=== PATIENT | female | born 1960 | race Two or more races ===

== ENCOUNTER → 2016-12-25 | Outpatient (CLI) | payer BC ==
--- NOTE | 2016-12-25 16:11 | RAD ---
PROCEDURE MRI of left knee without contrast dated 12/25/2016. HISTORY Worsening left knee pain. History of recent dislocation. TECHNIQUE Routine multiplanar multisequence MR imaging performed. COMPARISON None. FINDINGS Patchy bone marrow edema within the posterior medial and posterior lateral tibial plateau. There is also mild edema within the marrow of the distal femur at the lateral terminal sulcus and weightbearing surface low medial femoral condyle. Mild edema is also noted within the medial patella. Possible small nondisplaced fracture at the posterior lateral tibial plateau. Moderate-sized joint effusion. Small to moderate-sized popliteal cyst. There is patchy edema throughout the subcutaneous tissues of the anterior and posterior knee. There is also mild edema within the gastrocnemius musculature. No apparent loose body. The anterior cruciate ligament is ill-defined at its femoral attachment and may be completely performed. The PCL is intact. Abnormal signal along the superficial and deep margins of the medial collateral ligament complex. There are thin fibers that appear to remain attached. No retracted tear. Mild increased signal within the substance of the fibular collateral ligament at its femoral attachment. Biceps femoris and conjoined tendon are intact. Popliteus tendon and iliotibial band intact. The arcuate complex is ill-defined and there is edema along the posterior lateral corner are the tip of the fibula. Vertical long-axis tear posterior horn and body lateral meniscus. The there is meniscal tissue flipped over the anterior horn and into the intercondylar notch. Medial meniscus normal in morphology and signal. Mild tricompartmental hypertrophic change. Thinning and surface irregularity of the articular cartilage throughout. Full-thickness cartilage fissuring at the medial aspect of the lateral aspect of the medial femoral condyle. There is also full-thickness cartilage loss at the medial patellar facet, patellar apex and trochlear groove. IMPRESSION - Bucket-handle tear of lateral meniscus. - Suspected full-thickness tear of the anterior cruciate ligament at its femoral attachment. Recommend physical exam correlation. - Intermediate to low grade strain of the medial collateral ligament complex proximally. - Low-grade strain of the fibular collateral ligament. - Edema and ill definition of the arcuate complex, possibly related to posterior lateral corner injury. - Mild tricompartmental degenerative arthrosis and chondromalacia. There is a full-thickness cartilage loss at the medial and anterior compartments. - Pivot shift bone contusion pattern as described above. There is a suspected small nondisplaced fracture of the posterior lateral tibial plateau. - Moderate size joint effusion and small popliteal cyst. Electronically signed by: Marek Gallardo (Dec 25, 2016 16:09:42)
== END | disposition home or self-care (01) ==
LOC: MRI 14:14
PROVIDERS: ATTEND Family Medicine
DX: S83.512A Sprain of anterior cruciate ligament of left knee, initial encounter (principal); S83.252A Bucket-handle tear of lateral meniscus, current injury, left knee, initial encounter; M17.12 Unilateral primary osteoarthritis, left knee; M94.262 Chondromalacia, left knee; M25.462 Effusion, left knee; M71.22 Synovial cyst of popliteal space [Baker], left knee; X58.XXXA Exposure to other specified factors, initial encounter; Y93.89 Activity, other specified; Y92.89 Other specified places as the place of occurrence of the external cause; Y99.8 Other external cause status
CPT/HCPCS: 73721

== ENCOUNTER 2017-01-29 05:45 | Observation (INO) | payer BC ==
[~2017-01-29] VITALS: Ht 162.6 cm; Wt 79.4 kg
[2017-01-29] VITALS (8 sets, daily range): BP systolic 122–147; BP diastolic 62–74
[2017-01-29] MEDS ORDERED: SIMV40TA3 PO (06:35)
[2017-01-29] MEDS ORDERED: LIDOCAINE 1% PF 30 ML VIAL. ONE (06:36)
[2017-01-29] MEDS ORDERED: BUPIVACAINE MPF 0.5% 30 ML VIAL. ONE (06:37)
[2017-01-29] MEDS ORDERED: EPINEPHrine VIAL 30 MG/30 ML VIAL ONE (06:37)
[2017-01-29] MEDS ORDERED: PROPOFOL 20 ML IV ONE (06:48)
[2017-01-29] MEDS ORDERED: SEVOFLURANE 61 TO 120 MINUTES. IH ONE (06:48)
[2017-01-29] MEDS ORDERED: DEXAMETHASONE SOD PHOS 20 MG/5 ML VIAL. ONE (06:48)
[2017-01-29] MEDS ORDERED: ONDANSETRON PF 4 MG/2 ML VIAL. ONE (06:49)
[2017-01-29] MEDS ORDERED: LIDOCAINE 2% PF Vial for OR 5 ML VIAL. ONE (06:49)
[2017-01-29] MEDS ORDERED: ONDANSETRON PF 4 MG/2 ML VIAL. IV PRN (07:00)
[2017-01-29] MEDS ORDERED: LIDOCAINE 1% 1 ML SYRINGE. ID PRN (07:00)
[2017-01-29] MEDS ORDERED: fentaNYL PF VIAL 100 MCG/2 ML VIAL IV PRN ×3 (07:00→13:00)
[2017-01-29] MEDS ORDERED: HYDROmorphone 2 MG/ML VIAL IV PRN (07:00)
[2017-01-29] MEDS ORDERED: PROCHLORPERAZINE 10 MG/2 ML VIAL. IV PRN ×2 (07:00→13:00)
[2017-01-29] MEDS ORDERED: MORPHINE SULFATE 2 MG/ML DISP.SYRIN. IV PRN ×2 (07:00→13:00)
[2017-01-29] MEDS ORDERED: IV RINGERS,LACTATED 1000ML 1,000 ML IV SCH (07:00)
[2017-01-29] MEDS ORDERED: fentaNYL PF VIAL 250 MCG/5 ML VIAL ONE (07:15)
--- NOTE | 2017-01-29 07:20 | DISCH ---
DISCHARGE INSTRUCTIONS Condition on Discharge Condition on Discharge: Stable Activity After Discharge Activity Instructions for Disc: Other, see below Bathing Instructions: Shower-keep dressing dry Weight Bearing Status after Di: Non weight bearing Diet after Discharge Diet after Discharge: Regular Wound Incision Care Wound/Incision Care: Ice to area for comfort, Keep wound/cast CDI, Change dressing Contacting the DRSena after DC Call your doctor for: Concerns you may have Follow-Up Follow up with: Mark in 2wks JASPREET HARRISON II, MD January 29, 2017 07:20
--- NOTE | 2017-01-29 07:21 | PDOC ---
BRIEF OPERATIVE NOTE Date: January 29, 2017 Pre-Op Diagnosis L ACL tear, LM tear Post-Op Diagnosis same Procedure Performed Alloograft L ACL recon, lateral menisc repair Surgeon Mark Lockett Anesthesia Type: General Blood Loss 10mL Complications none JASPREET HARRISON II, MD January 29, 2017 07:21
[2017-01-29] MEDS ORDERED: ePHEDrine PF IN SALINE 50 MG/5 ML DISP.SYRIN IV ONE (07:45)
[2017-01-29] MEDS ORDERED: SEVOFLURANE > 120 MINUTES. IH ONE (07:52)
[2017-01-29] MEDS ORDERED: OXYC-323 PO (10:33)
[2017-01-29] MEDS ORDERED: ONDA4TAB7 PO (10:34)
[2017-01-29] MEDS ORDERED: DOCU-27 PO (10:34)
[2017-01-29] MEDS ORDERED: oxyCODONE/APAP 5/325 1 TAB TABLET PO PRN ×2 (11:00→13:00)
[2017-01-29] MEDS: fentaNYL PF VIAL 100 MCG/2 ML VIAL IV PRN ×2 (11:20→11:25)
[2017-01-29] MEDS ORDERED: PROCHLORPERAZINE 5 MG TABLET. PO PRN (13:00)
[2017-01-29] MEDS ORDERED: 0.9 % SODIUM CHLORIDE 10 ML DISP.SYRIN. IV PRN (13:00)
[2017-01-29] MEDS ORDERED: MORPHINE SULFATE 10 MG/ML VIAL. IV PRN (13:00)
[2017-01-29] MEDS ORDERED: HYDROcodone/APAP 10/325 1 TAB TABLET PO PRN (13:00)
[2017-01-29] MEDS ORDERED: DEXTROSE 50% 25 GM / 50ML DISP.SYRIN. IV PRN (13:00)
[2017-01-29] MEDS ORDERED: HYDROcodone/APAP 7.5/325MG 1 TAB TABLET PO PRN (13:00)
[2017-01-29] MEDS ORDERED: ZOLPIDEM 5 MG TABLET. PO PRN (13:00)
[2017-01-29] MEDS ORDERED: traMADol 50 MG TABLET PO PRN ×2 (13:00)
[2017-01-29] MEDS ORDERED: oxyCODONE/APAP 7.5/325 1 TAB TABLET PO PRN (13:00)
[2017-01-29] MEDS ORDERED: MORPHINE SULFATE 4 MG/ML DISP.SYRIN. IV PRN ×2 (13:00)
[2017-01-29] MEDS ORDERED: diphenhydrAMINE 50 MG/ML VIAL IV PRN (13:00)
[2017-01-29] MEDS ORDERED: CALCIUM CARBONATE 500 MG TAB.CHEW PO PRN (13:00)
[2017-01-29] MEDS ORDERED: METOCLOPRAMIDE HCL 10 MG/2 ML VIAL. IV PRN (13:00)
[2017-01-29] MEDS: IV DEXTROSE 5 %-0.45 % NACL 1,000 ML IV SCH ×2 (13:58→14:03)
[2017-01-30 03:06] VITALS: BP 123/60
[2017-01-30] MEDS ORDERED: MAGNESIUM HYDROXIDE 2,400 MG/30 ML ORAL.SUSP. PO PRN (06:00)
[2017-01-30 06:04] VITALS: BP 119/64
--- NOTE | 2017-01-30 08:03 | OP ---
DATE OF SURGERY: 01/29/2017 SURGEON: Will Harrison MD AUTOMOTIVE TEACHER: Shagufta Lockett. ANESTHESIA: General plus local. PREOPERATIVE DIAGNOSES: 1. Left knee anterior cruciate ligament tear. 2. Left knee bucket-handle lateral meniscus tear. POSTOPERATIVE DIAGNOSES: 1. Left knee anterior cruciate ligament tear. 2. Left knee bucket-handle lateral meniscus tear. PROCEDURES PERFORMED: 1. Arthroscopic assisted allograft ACL reconstruction. 2. Inside-out and all-inside lateral meniscus repair. TOURNIQUET TIME: 170 minutes. ESTIMATED BLOOD LOSS: 25 mL COMPONENTS INSERTED: 1. Rdz and Nephew Endobutton. 2. Biomet TunneLoc. 3. Rdz [employer] Nephew Fast-Fix x 2. COMPLICATIONS: None. FINDINGS: 1. The patient had grade 3 changes at her patella. 2. Trochlea was without pathology. 3. She had an area approximately 8 x 12 mm with grade 2-3 changes at 30 degrees of her medial femoral condyle. 4. Intact medial tibial plateau. 5. Intact medial meniscus. 6. Complete ACL tear. 7. Bucket-handle lateral meniscus tear. 8. Lateral compartment showed some softening of the tibial plateau, but otherwise, was without pathology. REASON FOR PROCEDURE: The patient is a very pleasant 56-year-old female who had a knee injury several months ago and presented to my Outpatient [facility] Surgery Clinic. Clinical and radiographic evidence including MRI were consistent with the above preoperative diagnoses. I recommended that we proceed with surgery and she delayed until after the school year. For full details, please see my outpatient note. We had a discussion of the risks, benefits, alternatives, she elected to proceed. DESCRIPTION OF PROCEDURE: The picture was greeted in the preoperative area by myself. Correct extremity was marked and verified. She was taken to the operative suite and antibiotics were started en route. Once in the OR, she was transferred gently supine to the OR table and secured to the bed. We taped a nonsterile tourniquet and placed to her left upper thigh. We placed a padded bolster laterally at her hip and a padded bar across the bed to maintain her knee in 90 degrees. We then proceeded to prep and drape left lower extremity in our usual sterile fashion and conducted a standard preoperative timeout. I then palpated and marked her surface anatomy and I then conducted an examination under anesthesia. Her knee was stable to varus and valgus at 0 and 30 degrees of flexion. She had positive Nuris without an endpoint. Positive pivot shift. Range of motion was 0 degrees to 140 degrees. After this, I then made my standard anterolateral arthroscopic portal and introduced a blunt trocar into the suprapatellar pouch. I then inspected her patellofemoral articulation and medial and lateral gutters. I then applied a valgus force to her knee and used spinal needle to localize the anteromedial portal and incised skin in accordance with this. I then inserted the probe and conducted my diagnostic arthroscopy with the above noted findings. I then took down some of the fat pad for visualization and noted her lateral meniscus bucket-handle tear. I then used a probe and a varus force on her knee to reduce this and did reduce quite nicely. I then debrided the ACL remnant. I took care to debride the medial wall of the lateral femoral condyle to make sure I could indentify the over the top position. I inspected the medial wall from an anteromedial portal as well. I marked my position for the ACL tunnel. I then removed the arthroscopic instrumentation and made an incision where I had drawn a line after palpating her landmarks for her lateral meniscus repair. I incised skin with a scalpel and dissected subcutaneous tissue with the Bucklin and cauterized bleeders as they were encountered. I incised fascia in line with skin incision and then bluntly developed a plane between her lateral gastrocnemius head and her posterior capsule. I used a Bucklin for this area as well a little bit. I then inserted the Leslie retractor. While this was occurring, my campaign assistant was on the back table preparing the graft. We sized it for an 8 at the femoral side and a 9-1/2 at the tibial side. We then reinserted the camera and using a zone specific cannula and advanced the Arthrex meniscal repair needles in a mattress fashion, 1 above and 1 below at the posterolateral corner of her meniscus. These were retrieved through my incision and tied down securely. I was not able to obtain an accurate enough trajectory for further inside-out repair and therefore, I opted to place two more supplemental Fast-Fix suture devices, one is very posterior and one more lateral. This gave a meniscus repair that was stable to probing. I then removed my Leslie and reintroduced the camera and redirected my attention to the ACL portion of the procedure. I then used a tip guide and seated the drill guide against skin and then backed it out and incised skin in accordance to this and I bluntly spread it down to the fascia. I palpated for the medial border of her tibia to make sure my tunnel was in a good position and then used a tip guide to localize my ACL footprint and my tibia where I wanted the tunnel. I then advanced the Beath pin after fully seating the Beath pin guide. I then removed the tip guide and used a 9.5 mm tibial drill with a sizing guide of larger diameter overtop of the drill for a soft tissue protector and then drilled. I then used a shaver to debride the tunnel and then placed the plug. I then used a 6 mm over the top guide with the knee in hyperflexion and advanced a Beath pin through both cortices and I was happy with this position. I then used the Endobutton reamer over the Beath pin and then removed the Beath pin and Endobutton reamer and inspected the position of my tunnel from an anteromedial portal and I was happy with it. I then measured the tunnel, it was approximately 33 mm. After this, I reintroduced the Beath pin through its same hole and pushed it out through the clamp or placed a Fadumo at the tip that exited laterally through the side. I then again was maintaining the knee in a hyperflexed position and then drilled or reamed over the Beath pin to a depth of approximately 29 and 30 mm. I then used a shaver to remove the loose bony debris from the knee and then removed the Beath pin as well. I relaxed her knee into 90 degrees flexion and then inspected the tunnel from an anteromedial portal and noted that the wall was intact circumferentially and I could visualize, the cortex was intact laterally. After this, the knee was then hyperflexed again. I reintroduced the Beath pin through its same hole. I then used to shuttle a #2 Ultrabraid through the femoral tunnel, which was then pulled out, a looped end of this was then pulled out through the tibial tunnel after removing the plug with a probe. I then used this to shuttle my ACL graft in place with the Endobutton passing sutures. This was confirmed by appropriate toggle, which disappeared with maximal backward traction on the graft. I then repeteadly cycled the knee while the graft was held with traction on it manually. I then placed my Biomet TunneLoc insertion device into the tibial incision and inserted it down to bone. I then secured and tensioned my suture limbs from my graft ends and then tensioned the Biomet device. The knee was then cycled repeatedly again. I then re-tensioned through the insertion handle one more time. The knee was at approximately 20 degrees of flexion for this. I then impacted the Biomet TunneLoc into position and then released tension on this and then cut the ends of the graft. She had a negative Unris with a solid endpoint at this time. I then reintroduced camera and inspected the knee, her meniscus repair was stable. ACL was in good position without impingement. I then introduced the camera and shaver into the suprapatellar pouch and performed repeated aspiration maneuvers through the shaver while my campaign assistant vigorously palpated behind the knee. I then removed all excess arthroscopic fluid and the arthroscopic instrumentation. The lateral skin incision was closed with inverted interrupted 2-0 on the subcutaneous tissue as was the tibial incision. A 3-0 simple nylon was used for the portals. Running 4-0 Monocryl in subcuticular fashion was used for skin at the lateral and meniscal repair incision and tibial incision. The leg was cleansed and dried. Tourniquet was let down. Sterile dressing was applied followed by cast padding and Kain wrap and a hinged knee brace from 0-90 degrees. Prior to completion of wound closure, all counts were reported as correct x 2. Postop plan is to discharge her home, she will be nonweightbearing x 6 weeks. At the conclusion of surgery, she was awakened and transferred gently supine to the recovery room cart and taken to PACU in stable and extubated condition. She will follow up with me in 2 weeks, sooner should problems arise. WILL HARRISON MD DR: TERRELL/joshua JOB#: [id number] / [id number] DEMETRICE
[2017-01-30] MEDS ORDERED: SENNOSIDES/DOCUSATE 8.6/50MG TABLET. PO SCH (09:00)
[2017-01-30] MEDS ORDERED: MULTIVITAMIN with MINERAL TABLET. PO SCH (09:00)
[2017-01-30 11:15] VITALS: BP 113/62
[2017-01-30] MEDS ORDERED: BISACODYL 10 MG SUPP.RECT. PR PRN (16:00)
== END 2017-01-30 13:30 | disposition home or self-care (01) ==
LOC: SURG 05:45 → 4 SOUTHEST 12:25
PROVIDERS: ADMIT Orthopaedic Surgery Sports Medicine; ATTEND Orthopaedic Surgery Sports Medicine
DX: S83.512A Sprain of anterior cruciate ligament of left knee, initial encounter (principal); S83.252A Bucket-handle tear of lateral meniscus, current injury, left knee, initial encounter; X58.XXXA Exposure to other specified factors, initial encounter; Y93.89 Activity, other specified; Y92.89 Other specified places as the place of occurrence of the external cause; Y99.8 Other external cause status
CPT/HCPCS: 29881; 29888; 96365; 96366; 96375; 97161; 97165; C1713; C1763; C1769; C1782; G0378; G0379; G8978; G8979; G8980; J0171; J0690; J0780; J1100; J1170; J2270; J2405; J2704; J3010; J3490; J7120

== ENCOUNTER 2017-03-19 10:37 | Observation (INO) | payer BC ==
[~2017-03-19] VITALS: Ht 162.6 cm; Wt 79.4 kg
[~2017-03-19 10:37] MED LIST: CHOL500016 PO; DOCU-109 PO; HYDROmorphone 2 MG/ML VIAL IV PRN; IV RINGERS,LACTATED 1000ML 1,000 ML IV SCH; LIDOCAINE 1% 1 ML SYRINGE. ID PRN; MORPHINE SULFATE 2 MG/ML DISP.SYRIN. IV PRN; ONDA4TAB7 PO; ONDANSETRON PF 4 MG/2 ML VIAL. IV PRN; OXYC-323 PO; PROCHLORPERAZINE 10 MG/2 ML VIAL. IV PRN; SIMV40TA3 PO
[2017-03-19] MEDS ORDERED: oxyCODONE/APAP 5/325 1 TAB TABLET PO PRN (11:15)
[2017-03-19] MEDS ORDERED: MORPHINE SULFATE 4 MG/ML DISP.SYRIN. IV PRN ×2 (11:15)
[2017-03-19] MEDS ORDERED: PROCHLORPERAZINE 10 MG/2 ML VIAL. IV PRN (11:15)
[2017-03-19] MEDS ORDERED: ZOLPIDEM 5 MG TABLET. PO PRN (11:15)
[2017-03-19] MEDS ORDERED: METOCLOPRAMIDE HCL 10 MG/2 ML VIAL. IV PRN (11:15)
[2017-03-19] MEDS ORDERED: DEXTROSE 50% 25 GM / 50ML DISP.SYRIN. IV PRN (11:15)
[2017-03-19] MEDS ORDERED: oxyCODONE/APAP 7.5/325 1 TAB TABLET PO PRN (11:15)
[2017-03-19] MEDS ORDERED: HYDROcodone/APAP 7.5/325MG 1 TAB TABLET PO PRN (11:15)
[2017-03-19] MEDS ORDERED: fentaNYL PF VIAL 100 MCG/2 ML VIAL IV PRN ×2 (11:15)
[2017-03-19] MEDS ORDERED: CALCIUM CARBONATE 500 MG TAB.CHEW PO PRN (11:15)
[2017-03-19] MEDS ORDERED: MORPHINE SULFATE 2 MG/ML DISP.SYRIN. IV PRN (11:15)
[2017-03-19] MEDS ORDERED: PROCHLORPERAZINE 5 MG TABLET. PO PRN (11:15)
[2017-03-19] MEDS ORDERED: traMADol 50 MG TABLET PO PRN (11:15)
[2017-03-19] MEDS ORDERED: HYDROcodone/APAP 10/325 1 TAB TABLET PO PRN (11:15)
[2017-03-19] MEDS ORDERED: diphenhydrAMINE 50 MG/ML VIAL IV PRN (11:15)
[2017-03-19] MEDS ORDERED: 0.9 % SODIUM CHLORIDE 10 ML DISP.SYRIN. IV PRN (11:15)
[2017-03-19] MEDS ORDERED: MORPHINE SULFATE 10 MG/ML VIAL. IV PRN (11:15)
[2017-03-19] MEDS ORDERED: PROPOFOL 20 ML IV ONE (12:00)
[2017-03-19] MEDS ORDERED: LIDOCAINE 2% PF Vial for OR 5 ML VIAL. ONE (12:00)
[2017-03-19] MEDS: fentaNYL PF VIAL 100 MCG/2 ML VIAL IV PRN ×4 (12:21→13:58)
[2017-03-19] MEDS: traMADol 50 MG TABLET PO PRN ×2 (15:34→21:26)
[2017-03-19] MEDS: IV DEXTROSE 5 %-0.45 % NACL 1,000 ML IV SCH ×2 (15:36→21:14)
[2017-03-19 15:55] VITALS: BP 107/54
[2017-03-19] MEDS: SENNOSIDES/DOCUSATE 8.6/50MG TABLET. PO SCH (17:04)
[2017-03-19 19:25] VITALS: BP 112/56
--- NOTE | 2017-03-19 20:26 | PDOC4 ---
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 She presented to my clinic recently and clinical examination revealed a profound loss in her motion. Therefore we had discussion of the risks, benefits, and alternatives to the above procedure and she elected to proceed. Description of Procedure: She was greeted in the preoperative area by myself where the correct extremity was marked and verified. She was taken back to the operative suite. Once in the OR she had successful induction of a conscious sedation and once she was under anesthesia enough for me to move her leg around I performed a steady close manipulation with her hip in flexion and pressure on her proximal tibia. There was palpable and audible breaking up of scar tissue. I then held her leg in gentle extension to try to get a little bit more motion back there as well. I then repeated these maneuvers until I felt I had achieved as much as I could safely. After this, she was awakened from anesthesia and taken to the PACU in stable condition. Postoperative plan is to work on aggressive knee range of motion with physical therapy. She can wean from her crutches with her assistance. We will plan on admitting her for observation status for IV pain medicine. WILL HARRISON II, MD Mar 19, 2017 20:26
[2017-03-19] MEDS ORDERED: SIMVASTATIN 40 MG TABLET. PO SCH (21:00)
[2017-03-19 23:18] VITALS: BP 121/66
[2017-03-20 03:12] VITALS: BP 110/67
[2017-03-20] MEDS: traMADol 50 MG TABLET PO PRN (05:57)
[2017-03-20] MEDS ORDERED: MAGNESIUM HYDROXIDE 2,400 MG/30 ML ORAL.SUSP. PO PRN (06:00)
[2017-03-20 07:00] VITALS: BP 108/62
[2017-03-20] MEDS: SENNOSIDES/DOCUSATE 8.6/50MG TABLET. PO SCH (08:51)
[2017-03-20] MEDS ORDERED: MULTIVITAMIN with MINERAL TABLET. PO SCH (09:00)
--- NOTE | 2017-03-20 09:02 | PDOC ---
ORTHO PROGRESS NOTES Subjective Some knee pain, tolerable. Doing well otherwise Vitals Vital Signs Date Time Temp Pulse Resp B/P (MAP) Pulse Ox O2 Delivery O2 Flow Rate FiO2 03/20/17 07:00 98.5 59 18 108/62 (77) 97 Room Air 98.5 03/19/17 12:26 10.0 Notes A and A LLE: effusion at knee normal motor and sensation distally toes warm Assessment and Plan ok to go home discussed importance of working on ROM PT tomorrow am JASPREET HARRISON II, MD Mar 20, 2017 09:02
--- NOTE | 2017-03-20 10:29 | DISCH ---
DISCHARGE INSTRUCTIONS Condition on Discharge Condition on Discharge: Stable Activity After Discharge Activity Instructions for Disc: Other, see below Other activity instructions: wean from crutches with PT Weight Bearing Status after Di: As tolerated Diet after Discharge Diet after Discharge: Regular Wound Incision Care Wound/Incision Care: Ice to area for comfort Contacting the DRSena after DC Call your doctor for: Concerns you may have Follow-Up Follow up with: Mark in 2wks Follow Up With: PT Friday JASPREET HARRISON II, MD Mar 20, 2017 10:28
--- NOTE | 2017-03-20 15:28 | PDOC3 ---
Discharge Summary Visit Information Date of Admission: Mar 19, 2017 Date of Discharge: Mar 20, 2017 Admitting Diagnosis: left knee arthrofibrosis Brief Hospital Course Allergies Allergies Coded Allergies Type Severity Reaction Last Updated Verified No Known Drug Allergies 03/19/17 No Vital Signs Vital Signs Date Time Temp Pulse Resp B/P (MAP) Pulse Ox O2 Delivery O2 Flow Rate FiO2 03/20/17 08:00 Room Air 03/20/17 07:00 98.5 59 18 108/62 (77) 97 98.5 03/19/17 12:26 10.0 Brief Hospital Course Ms. Gunn is a 56 old female who underwent left knee ACL reconstruction and open meniscus repair and developed arthrofibrosis. Because of her profound loss of motion, had a discussion of the risks, benefits, and alternatives to knee manipulation under sedation and she elected to proceed. She tolerated this procedure well and it went well. She received PT and OT afterwards. She was admitted for IV pain control. Her hospital course was uneventful. Her pain was controlled on oral pain medicine. She was tolerating a regular diet and was having normal bowel and bladder function. She remained hemodynamically stable and afebrile. Discharge Information Condition at Discharge: Stable Follow Up: Weeks Disposition/Orders: D/C to Home Scheduled Cholecalciferol (Vitamin D3) (Vitamin D3), 1 TAB PO QMTH, (Reported) Simvastatin (Simvastatin), 40 MG PO HS, (Reported) Patient Instructions Patient Instructions She will follow up with physical therapy tomorrow. She can begin to wean from the crutches. Okay to weight-bear as tolerated. The importance of range of motion exercises was discussed with her. We will see her back in 2 weeks in my outpatient clinic JASPREET HARRISON II, MD Mar 20, 2017 15:28
[2017-03-20] MEDS ORDERED: BISACODYL 10 MG SUPP.RECT. PR PRN (16:00)
== END 2017-03-20 11:51 | disposition home or self-care (01) ==
LOC: SURG 10:37 → 4 NORTH 14:00
PROVIDERS: ADMIT Orthopaedic Surgery Sports Medicine; ATTEND Orthopaedic Surgery Sports Medicine
DX: M24.662 Ankylosis, left knee (principal)
CPT/HCPCS: 27570; 97110; 97116; 97162; G0378; G0379; J2001; J2704; J3010; Q0164